=== PATIENT | male | born 1995 | race Caucasian/White ===

== ENCOUNTER 2017-11-20 15:04 | Emergency (ER) | payer OTHER ==
[2017-11-20 15:12] VITALS: RESP 16; TEMP 97.3
--- NOTE | 2017-11-20 15:20 | EDPHY ---
H & P Stated Complaint: LEFT 3RD FINGER CRUSH INJURY Time Seen by Provider: 11/20/17 15:13 HPI/ROS: CHIEF COMPLAINT: Crush injury HISTORY OF PRESENT ILLNESS: The patient is a 22-year-old man who was moving a refrigerator when it crushed his finger. He pulled his finger out and lost his finger nail. He has a nail bed laceration. He denies injuries to his other fingers or extremities. He has his fingernail in his pocket. REVIEW OF SYSTEMS: Constitutional: denies: chills, fever, recent illness, recent injury EENTM: denies: blurred vision, double vision, nose congestion Respiratory: denies: cough, shortness of breath Cardiac: denies: chest pain, irregular heart rate, lightheadedness, palpitations Gastrointestinal/Abdominal: denies: abdominal pain, diarrhea, nausea, vomiting, blood streaked stools Genitourinary: denies: dysuria, frequency, hematuria, pain Musculoskeletal: See HPI Skin: denies: lesions, rash, jaundice, bruising Neurological: denies: headache, numbness, paresthesia, tingling, dizziness, weakness Hematologic/Lymphatic: denies: blood clots, easy bleeding, easy bruising Immunologic/allergic: denies: HIV/AIDS, transplant EXAM: GENERAL: Well-appearing, well-nourished and in no acute distress. HEAD: Atraumatic, normocephalic. EYES: Pupils equal round and reactive to light, extraocular movements intact, sclera anicteric, conjunctiva are normal. ENT: TMs normal, nares patent, oropharynx clear without exudates. Moist mucous membranes. NECK: Normal range of motion, supple without lymphadenopathy or JVD. LUNGS: Breath sounds clear to auscultation bilaterally and equal. No wheezes rales or rhonchi. HEART: Regular rate and rhythm without murmurs, rubs or gallops. ABDOMEN: Soft, nontender, normoactive bowel sounds. No guarding, no rebound. No masses appreciated. BACK: No CVA tenderness, no spinal tenderness, step-offs or deformities EXTREMITIES: Crush injury to left middle finger. Finger nail missing. Nail bed with star-shaped laceration. Minimal bleeding. Normal sensation distally. NEUROLOGICAL: Cranial nerves II through XII grossly intact. Normal speech, normal gait. 5/5 strength, normal movement in all extremities, normal sensation PSYCH: Normal mood, normal affect. SKIN: Warm, dry, normal turgor, no visible rashes or lesions. Source: Patient Exam Limitations: No limitations - Personal History Current Tetanus Diphtheria and Acellular Pertussis (TDAP): Yes - Medical/Surgical History Hx Asthma: No Hx Chronic Respiratory Disease: No Hx Diabetes: No Hx Cardiac Disease: No Hx Renal Disease: No Hx Cirrhosis: No Hx Alcoholism: No Hx HIV/AIDS: No Hx Splenectomy or Spleen Trauma: No Other PMH: Knee surg left - Family History Significant Family History: No pertinent family hx - Social History Smoking Status: Never smoked Alcohol Use: Sober Drug Use: None Constitutional: Initial Vital Signs Temperature (C) 36.3 C 11/20/17 15:08 Heart Rate 89 11/20/17 15:08 Respiratory Rate 16 11/20/17 15:08 Blood Pressure 124/87 H 11/20/17 15:08 O2 Sat (%) 97 11/20/17 15:08 O2 Delivery Mode Room Air Allergies/Adverse Reactions: No Known Allergies Allergy (Unverified 11/20/17 15:20) Home Medications: Medication Instructions Recorded NK [No Known Home Meds] 11/20/17 Medical Decision Making - Diagnostics Imaging Results: Imaging Impressions Finger X-Ray 11/20/17 15:19 Impression: Minimally displaced distal tuft fracture of the middle finger. Imaging: Discussed imaging studies w/ order caller Radiologist Procedures: Procedure: Laceration repair. Verbal consent was obtained from the patient. The nail bed laceration was anesthetized with 0.5% bupivacaine digital block. The wound was irrigated copiously according to protocol, draped. There were no deep structures involved. No tendon, nerve, or vascular injury was identified when explored. No foreign body was identified. The wound was repaired with 5.0 Vicryl on the nail bed x2 sutures, the nail was replaced and held securely by 5.0 Prolene x4 sutures. The wound repair was complex. The procedure was performed by myself. A dressing was then placed with sterile gauze and bacitracin. ED Course/Re-evaluation: Patient tolerated wound repair well. We discussed suture and fingernail removal in 10 days and regrowth of a new fingernail. We discussed keeping it clean. Patient understands and agrees with this plan. We discussed fracture. This should not require antibiotics. We discussed symptoms to watch for. Differential Diagnosis: Partial list of the Differential diagnosis considered include but were not limited to; tuft fracture, nail bed laceration, fingernail avulsion and although unlikely based on the history and physical exam, I also considered joint injury, dislocation, vascular injury. I discussed these differential diagnoses and the plan with the patient as well as the usual and expected course. The patient understands that the diagnosis is provisional and that in medicine we are not always correct and that further workup is often warranted. Usual and customary warnings were given. All of the patient's questions were answered. The patient was instructed to return to the emergency department should the symptoms at all worsen or return, otherwise to followup with the physician as we discussed. Departure - Departure Disposition: Home, Routine, Self-Care Clinical Impression: Laceration of nail bed of finger Qualifiers: Encounter type: initial encounter Qualified Code(s): S61.319A - Laceration without foreign body of unspecified finger with damage to nail, initial encounter Fingernail avulsion, complete Qualifiers: Encounter type: initial encounter Qualified Code(s): S61.309A - Unspecified open wound of unspecified finger with damage to nail, initial encounter Clinical Impression: (Ruled Out): Closed fracture of tuft of distal phalanx of finger Condition: Fair Instructions: Nail Avulsion (ED) Additional Instructions: Return in 10 days to have her sutures removed. Watch for any signs of infection including erythema or purulence or fever. Referrals: Marquis Mcfarland MD [Primary Care Provider] - As per Instructions
[2017-11-20 16:32] VITALS: BP 128/82; PULSE 85; O2SAT 95
== END 2017-11-20 16:25 | disposition home or self-care (01) ==
LOC: CED 15:04
PROC: 0HQQXZZ Repair Finger Nail, External Approach (ICD-10-PCS; principal; 2017-11-20)
DX: S61.313A Laceration without foreign body of left middle finger with damage to nail, initial encounter (principal); W23.1XXA Caught, crushed, jammed, or pinched between stationary objects, initial encounter
CPT/HCPCS: 73140-PO